=== PATIENT | female | born 1965 | race Caucasian/White ===

== ENCOUNTER 2017-12-18 15:32 | Emergency (ER) | payer OTHER, MEDICARE ==
[~2017-12-18] VITALS: Ht 149.9 cm; Wt 43.2 kg
[2017-12-18 16:19] LABS: CLARITY,URINE SLIGHTLY CLOUDY (Clear); COLOR,URINE YELLOW (Yellow); GLUCOSE, URINE NEGATIVE (Neg); KETONES,URINE NEGATIVE (Neg); LEUKOCYTE ESTERASE ,URINE NEGATIVE (Neg); NITRITES, URINE NEGATIVE (Neg); OCCULT BLOOD,URINE MODERATE (Neg); PROTEIN,URINE NEGATIVE (Neg); UROBILINOGEN,URINE 0.2 E.U/dL (0.2-1.0)
[2017-12-18 16:21] LABS: UA COLLECTION TYPE CLN CATCH MIDSTREAM
[2017-12-18 16:28] LABS: BACTERIA,URINE 3+ /HPF (Neg); SQUAMOUS EPITHELIAL CELL,UR MANY /LPF (FEW)
[2017-12-18 16:29] LABS: RBC,URINE 20-50 /HPF (0-2)
[2017-12-18] MEDS ORDERED: NITR100C6 PO (16:39)
[2017-12-18 16:49] VITALS: BP 150/89
== END 2017-12-18 16:52 | disposition home or self-care (01) ==
LOC: ER 15:32
DX: J02.8 Acute pharyngitis due to other specified organisms (principal); N39.0 Urinary tract infection, site not specified; I10 Essential (primary) hypertension; Z98.890 Other specified postprocedural states; Z90.89 Acquired absence of other organs; Z88.8 Allergy status to other drugs, medicaments and biological substances; Z88.5 Allergy status to narcotic agent; Z79.899 Other long term (current) drug therapy
CPT/HCPCS: 81001; 87081; 87880; 99284

== ENCOUNTER 2017-12-25 18:51 | Emergency (ER) | payer OTHER, MEDICARE ==
[~2017-12-25] VITALS: Ht 149.9 cm; Wt 91.5 kg
[~2017-12-25 18:51] MED LIST: NITR100C6 PO
[2017-12-25 19:25] LABS: BASOPHILS # (AUTO) 0.1 X10'3 (0-0.2); BASOPHILS % (AUTO) 0.7 % (0-1); EOSINOPHILS # (AUTO) 0.3 X10'3 (0-0.9); EOSINOPHILS % (AUTO) 2.7 % (0-6); HEMATOCRIT 42.6 % (35.0-45.0); HEMOGLOBIN 14.6 g/dl (12.0-16.0); LYMPHOCYTES # (AUTO) 3.3 X10'3 (1.1-4.8); LYMPHOCYTES % (AUTO) 29.1 % (21-51); MEAN CORPUSCULAR HEMOGLOBIN 29.8 PG (27.0-31.0); MEAN CORPUSCULAR HGB CONC 34.2 % (33.0-36.5); MEAN CORPUSCULAR VOLUME 87.2 FL (78-98); MEAN PLATELET VOLUME 8.1 FL (7.4-10.4); MONOCYTES # (AUTO) 0.7 X10'3 (0-0.9); MONOCYTES % (AUTO) 5.9 % (2-12); NEUTROPHILS % (AUTO) 61.6 % (42-75); PLATELET COUNT 268 X10'3 (140-440); RED BLOOD COUNT 4.88 X10'6 (4.20-5.60); RED CELL DISTRIBUTION WIDTH 14.3 % (11.5-14.5); WHITE BLOOD COUNT 11.3 X10'3 (4.5-11.0)
[2017-12-25 19:30] LABS: URINE HCG NEGATIVE (NEG)
[2017-12-25 19:34] LABS: INR 0.9 INR; PROTHROMBIN TIME 9.5 SECONDS (9.0-12.0)
[2017-12-25 19:34] LABS: CLARITY,URINE CLEAR (Clear); COLOR,URINE YELLOW (Yellow); GLUCOSE, URINE NEGATIVE (Neg); KETONES,URINE NEGATIVE (Neg); LEUKOCYTE ESTERASE ,URINE NEGATIVE (Neg); NITRITES, URINE NEGATIVE (Neg); OCCULT BLOOD,URINE MODERATE (Neg); PROTEIN,URINE NEGATIVE (Neg); UROBILINOGEN,URINE 0.2 E.U/dL (0.2-1.0)
[2017-12-25 19:39] LABS: UA COLLECTION TYPE CLN CATCH MIDSTREAM
[2017-12-25 19:40] LABS: ALANINE AMINOTRANSFERASE 34 U/L (12-78); ALBUMIN 3.7 G/DL (3.4-5.0); ALKALINE PHOSPHATASE 80 IU/L (46-116); ANION GAP 6 (8-16); ASPARTATE AMINO TRANSFERASE 18 U/L (10-37); BILIRUBIN,TOTAL 0.3 MG/DL (0.1-1.0); BLOOD UREA NITROGEN 16 MG/DL (7-18); CALCIUM 8.9 MG/DL (8.5-10.1); CHLORIDE 100 MMOL/L (99-107); CREATININE 0.94 MG/DL (0.40-0.90); GLUCOSE 106 MG/DL (70-104); POTASSIUM 3.2 MMOL/L (3.5-5.1); SODIUM 136 MMOL/L (135-145); TOTAL CARBON DIOXIDE 30.4 MMOL/L (24-32); TOTAL PROTEIN 7.3 G/DL (6.4-8.2); eGFR 62 ML/MIN
[2017-12-25 19:51] LABS: BACTERIA,URINE 1+ /HPF (Neg); MUCUS STRANDS FEW /LPF (Neg); SQUAMOUS EPITHELIAL CELL,UR FEW /LPF (FEW); WBC,URINE 0-4 /HPF (0-4)
[2017-12-25] MEDS ORDERED: normal saline 1000ML IV soln IVB ONE (21:05)
[2017-12-25] MEDS ORDERED: morphine 4 MG/ML inj SYRINge IV ONE ×2 (21:05→23:30)
[2017-12-25] MEDS ORDERED: ondansetron/PF 4mg/2ml inj IV ONE ×2 (21:05→23:15)
[2017-12-25] MEDS ORDERED: ketorolac tromethamine 15mg/ml inj. IV ONE (21:05)
[2017-12-25] MEDS ORDERED: iohexol 300mg/ml 100ml inj. ONE (21:15)
[2017-12-25] MEDS ORDERED: MORPHINE 2MG in 2ml NS syringe IV PRN (23:15)
[2017-12-25] MEDS ORDERED: ONDA8TAB9 PO (23:20)
[2017-12-25] MEDS ORDERED: HYDR-3965 PO (23:20)
[2017-12-26 00:24] VITALS: BP 143/93
== END 2017-12-26 00:41 | disposition home or self-care (01) ==
LOC: ER 18:51
DX: R10.31 Right lower quadrant pain (principal); M54.5 Low back pain; I10 Essential (primary) hypertension; Z90.89 Acquired absence of other organs; Z98.890 Other specified postprocedural states; Z88.1 Allergy status to other antibiotic agents; Z88.5 Allergy status to narcotic agent; Z88.8 Allergy status to other drugs, medicaments and biological substances; Z79.899 Other long term (current) drug therapy
CPT/HCPCS: 36415; 74177; 80053; 81001; 81025; 85025; 85610; 96374; 96375; 96376; 99285; J1885; J2270; J2274; J2405; J7030; Q9967

== ENCOUNTER 2017-12-29 10:42 | Emergency (ER) | payer OTHER, MEDICARE ==
[~2017-12-29] VITALS: Ht 149.9 cm; Wt 89.0 kg
[~2017-12-29 10:42] MED LIST changes: +HYDR-3965 PO; +ONDA8TAB9 PO
[2017-12-29 11:13] LABS: BASOPHILS % (AUTO) 0.2 % (0-1); EOSINOPHILS # (AUTO) 0.3 X10'3 (0-0.9); EOSINOPHILS % (AUTO) 2.4 % (0-6); HEMATOCRIT 41.6 % (35.0-45.0); HEMOGLOBIN 14.3 g/dl (12.0-16.0); LYMPHOCYTES # (AUTO) 0.5 X10'3 (1.1-4.8); LYMPHOCYTES % (AUTO) 3.3 % (21-51); MEAN CORPUSCULAR HEMOGLOBIN 29.7 PG (27.0-31.0); MEAN CORPUSCULAR HGB CONC 34.3 % (33.0-36.5); MEAN CORPUSCULAR VOLUME 86.7 FL (78-98); MEAN PLATELET VOLUME 7.8 FL (7.4-10.4); MONOCYTES # (AUTO) 0.6 X10'3 (0-0.9); MONOCYTES % (AUTO) 4.3 % (2-12); NEUTROPHILS # (AUTO) 12.9 X10'3 (1.8-7.7); NEUTROPHILS % (AUTO) 89.8 % (42-75); PLATELET COUNT 233 X10'3 (140-440); RED CELL DISTRIBUTION WIDTH 14.6 % (11.5-14.5); WHITE BLOOD COUNT 14.3 X10'3 (4.5-11.0)
[2017-12-29] MEDS ORDERED: ketorolac trometh. 30mg/ml inj. IV ONE (11:20)
[2017-12-29] MEDS ORDERED: ondansetron/PF 4mg/2ml inj IV ONE (11:20)
[2017-12-29] MEDS ORDERED: normal saline 1000ML IV soln IVB ONE (11:20)
[2017-12-29 11:26] LABS: INR 0.9 INR; PARTIAL THROMBOPLASTIN TIME 31 SECONDS (22-32); PROTHROMBIN TIME 9.8 SECONDS (9.0-12.0)
[2017-12-29 11:34] LABS: ALANINE AMINOTRANSFERASE 44 U/L (12-78); ALBUMIN 3.3 G/DL (3.4-5.0); ALBUMIN/GLOBULIN RATIO 0.8 (1.1-1.5); ALKALINE PHOSPHATASE 79 IU/L (46-116); ANION GAP 10 (8-16); ASPARTATE AMINO TRANSFERASE 25 U/L (10-37); BILIRUBIN,TOTAL 0.5 MG/DL (0.1-1.0); BLOOD UREA NITROGEN 13 MG/DL (7-18); BUN/CREATININE RATIO 12.4 (6.6-38.0); CALCIUM 8.9 MG/DL (8.5-10.1); CHLORIDE 98 MMOL/L (99-107); CREATININE 1.05 MG/DL (0.40-0.90); GLUCOSE 140 MG/DL (70-104); LIPASE < 50 U/L (73-393); POTASSIUM 3.2 MMOL/L (3.5-5.1); SODIUM 134 MMOL/L (135-145); TOTAL CARBON DIOXIDE 26.4 MMOL/L (24-32); TOTAL PROTEIN 7.6 G/DL (6.4-8.2); eGFR 55 ML/MIN
[2017-12-29 11:45] LABS: MONOTEST NEGATIVE (Neg)
[2017-12-29 12:03] LABS: CLARITY,URINE CLOUDY (Clear); COLOR,URINE YELLOW (Yellow); GLUCOSE, URINE NEGATIVE (Neg); KETONES,URINE TRACE mg/dl (Neg); LEUKOCYTE ESTERASE ,URINE NEGATIVE (Neg); NITRITES, URINE NEGATIVE (Neg); OCCULT BLOOD,URINE LARGE (Neg); PROTEIN,URINE 100 mg/dl (Neg); UA COLLECTION TYPE VOIDED
[2017-12-29 12:12] LABS: BACTERIA,URINE 1+ /HPF (Neg); RBC,URINE 20-50 /HPF (0-2); SQUAMOUS EPITHELIAL CELL,UR MANY /LPF (FEW); WBC,URINE 0-4 /HPF (0-4)
[2017-12-29 12:13] LABS: AMORPHOUS URATES 1+; MUCUS STRANDS FEW /LPF (Neg)
[2017-12-29] MEDS ORDERED: HYDROcodone/acetaminophen 10/325mg tab PO ONE (14:15)
[2017-12-29 14:50] VITALS: BP 112/64
[2017-12-29] MEDS ORDERED: POLY17PO10 PO (15:30)
== END 2017-12-29 15:43 | disposition home or self-care (01) ==
LOC: ER 10:42
DX: B08.4 Enteroviral vesicular stomatitis with exanthem (principal); K59.00 Constipation, unspecified; I10 Essential (primary) hypertension; Z98.890 Other specified postprocedural states; Z90.89 Acquired absence of other organs; Z88.5 Allergy status to narcotic agent; Z88.8 Allergy status to other drugs, medicaments and biological substances; Z79.899 Other long term (current) drug therapy
CPT/HCPCS: 36415; 62270; 71045; 74018; 80053; 81001; 83605; 83690; 84145; 85025; 85610; 85730; 86308; 87040; 96361; 96374; 96375; 99285; A6258; J1885; J2405; J7030

== ENCOUNTER 2017-12-31 11:09 | Outpatient (CLI) | payer OTHER, MEDICARE ==
[~2017-12-31 11:09] MED LIST changes: +POLY17PO10 PO
[2017-12-31 11:38] LABS: BASOPHILS % (AUTO) 0.2 % (0-1); EOSINOPHILS # (AUTO) 0.7 X10'3 (0-0.9); EOSINOPHILS % (AUTO) 10.7 % (0-6); HEMATOCRIT 39.9 % (35.0-45.0); HEMOGLOBIN 13.6 g/dl (12.0-16.0); LYMPHOCYTES # (AUTO) 1.7 X10'3 (1.1-4.8); LYMPHOCYTES % (AUTO) 27.9 % (21-51); MEAN CORPUSCULAR HEMOGLOBIN 29.6 PG (27.0-31.0); MEAN CORPUSCULAR HGB CONC 34.1 % (33.0-36.5); MEAN CORPUSCULAR VOLUME 86.9 FL (78-98); MEAN PLATELET VOLUME 7.4 FL (7.4-10.4); MONOCYTES # (AUTO) 0.5 X10'3 (0-0.9); MONOCYTES % (AUTO) 8.9 % (2-12); NEUTROPHILS # (AUTO) 3.2 X10'3 (1.8-7.7); NEUTROPHILS % (AUTO) 52.3 % (42-75); PLATELET COUNT 266 X10'3 (140-440); RED CELL DISTRIBUTION WIDTH 14.5 % (11.5-14.5); WHITE BLOOD COUNT 6.1 X10'3 (4.5-11.0)
[2017-12-31 11:53] LABS: ALANINE AMINOTRANSFERASE 41 U/L (12-78); ALBUMIN 3.2 G/DL (3.4-5.0); ALBUMIN/GLOBULIN RATIO 0.8 (1.1-1.5); ALKALINE PHOSPHATASE 76 IU/L (46-116); ANION GAP 7 (8-16); ASPARTATE AMINO TRANSFERASE 17 U/L (10-37); BILIRUBIN,TOTAL 0.4 MG/DL (0.1-1.0); BLOOD UREA NITROGEN 13 MG/DL (7-18); BUN/CREATININE RATIO 12.5 (6.6-38.0); CALCIUM 9.3 MG/DL (8.5-10.1); CHLORIDE 103 MMOL/L (99-107); CREATININE 1.04 MG/DL (0.40-0.90); GLUCOSE 103 MG/DL (70-104); LIPASE < 50 U/L (73-393); POTASSIUM 3.1 MMOL/L (3.5-5.1); SODIUM 140 MMOL/L (135-145); TOTAL CARBON DIOXIDE 30.2 MMOL/L (24-32); TOTAL PROTEIN 7.2 G/DL (6.4-8.2); eGFR 55 ML/MIN
== END 2017-12-31 23:59 | disposition home or self-care (01) ==
LOC: LAB 11:09
PROVIDERS: ATTEND Family Medicine
DX: R11.10 Vomiting, unspecified (principal); Z88.1 Allergy status to other antibiotic agents; Z88.5 Allergy status to narcotic agent
CPT/HCPCS: 36415; 80053; 83690; 85025

== ENCOUNTER 2018-05-30 11:34 | Emergency (ER) | payer OTHER, MEDICARE ==
[~2018-05-30] VITALS: Ht 149.9 cm; Wt 81.8 kg
[~2018-05-30 11:34] MED LIST changes: -HYDR-3965 PO; +KETO10TA2 PO; +ORPH100T2 PO; -POLY17PO10 PO
[2018-05-30] MEDS ORDERED: ondansetron/PF 4mg/2ml inj IV ONE (12:45)
[2018-05-30] MEDS ORDERED: normal saline 1000ML IV soln IVB ONE (12:45)
[2018-05-30 12:51] LABS: BASOPHILS # (AUTO) 0.1 X10'3 (0-0.2); BASOPHILS % (AUTO) 0.6 % (0-1); EOSINOPHILS # (AUTO) 0.1 X10'3 (0-0.9); EOSINOPHILS % (AUTO) 1.2 % (0-6); HEMATOCRIT 42.8 % (35.0-45.0); HEMOGLOBIN 14.4 g/dl (12.0-16.0); LYMPHOCYTES # (AUTO) 2.5 X10'3 (1.1-4.8); LYMPHOCYTES % (AUTO) 27.1 % (21-51); MEAN CORPUSCULAR HEMOGLOBIN 29.8 PG (27.0-31.0); MEAN CORPUSCULAR HGB CONC 33.7 % (33.0-36.5); MEAN CORPUSCULAR VOLUME 88.2 FL (78-98); MEAN PLATELET VOLUME 8.4 FL (7.4-10.4); MONOCYTES # (AUTO) 0.5 X10'3 (0-0.9); NEUTROPHILS # (AUTO) 6.1 X10'3 (1.8-7.7); NEUTROPHILS % (AUTO) 66.1 % (42-75); PLATELET COUNT 289 X10'3 (140-440); RED BLOOD COUNT 4.85 X10'6 (4.20-5.60); RED CELL DISTRIBUTION WIDTH 12.8 % (11.5-14.5); WHITE BLOOD COUNT 9.3 X10'3 (4.5-11.0)
[2018-05-30 13:00] LABS: CLARITY,URINE CLEAR (Clear); COLOR,URINE STRAW (Yellow); GLUCOSE, URINE NEGATIVE (Neg); KETONES,URINE NEGATIVE (Neg); LEUKOCYTE ESTERASE ,URINE NEGATIVE (Neg); NITRITES, URINE NEGATIVE (Neg); OCCULT BLOOD,URINE SMALL (Neg); PROTEIN,URINE NEGATIVE (Neg); UROBILINOGEN,URINE 0.2 E.U/dL (0.2-1.0)
[2018-05-30 13:01] LABS: UA COLLECTION TYPE CLN CATCH MIDSTREAM
[2018-05-30 13:15] LABS: RBC,URINE 0-2 /HPF (0-2); WBC,URINE NONE SEEN /HPF (0-4)
[2018-05-30 13:16] LABS: BACTERIA,URINE RARE /HPF (Neg); SQUAMOUS EPITHELIAL CELL,UR FEW /LPF (FEW)
[2018-05-30 13:21] LABS: ALANINE AMINOTRANSFERASE 35 U/L (12-78); ALBUMIN 3.8 G/DL (3.4-5.0); ALBUMIN/GLOBULIN RATIO 1.2 (1.1-1.5); ALKALINE PHOSPHATASE 63 IU/L (46-116); ANION GAP 14 (8-16); ASPARTATE AMINO TRANSFERASE 17 U/L (10-37); BILIRUBIN,TOTAL 0.6 MG/DL (0.1-1.0); BLOOD UREA NITROGEN 12 MG/DL (7-18); BUN/CREATININE RATIO 13.2 (6.6-38.0); CALCIUM 8.8 MG/DL (8.5-10.1); CHLORIDE 100 MMOL/L (99-107); CREATININE 0.91 MG/DL (0.40-0.90); GLUCOSE 93 MG/DL (70-104); SODIUM 138 MMOL/L (135-145); TOTAL CARBON DIOXIDE 24.2 MMOL/L (24-32); TOTAL PROTEIN 7.1 G/DL (6.4-8.2); eGFR 64 ML/MIN
[2018-05-30] MEDS ORDERED: METR-211 PO (13:27)
[2018-05-30] MEDS ORDERED: potassium Cl 20 mEq SR tablet PO ONE (13:30)
[2018-05-30] MEDS ORDERED: POTA10CA44 PO (13:31)
[2018-05-30 14:09] VITALS: BP 121/73
== END 2018-05-30 14:37 | disposition home or self-care (01) ==
LOC: ER 11:34
DX: N76.0 Acute vaginitis (principal); R19.7 Diarrhea, unspecified; I10 Essential (primary) hypertension; Z90.710 Acquired absence of both cervix and uterus; Z90.89 Acquired absence of other organs; Z98.890 Other specified postprocedural states; Z88.1 Allergy status to other antibiotic agents; Z91.018 Allergy to other foods; Z88.6 Allergy status to analgesic agent; Z88.8 Allergy status to other drugs, medicaments and biological substances; Z79.899 Other long term (current) drug therapy
CPT/HCPCS: 36415; 80053; 81001; 85025; 96361; 96374; 99283; J2405; J7030

== ENCOUNTER 2018-07-11 12:48 | Outpatient (CLI) | payer OTHER, MEDICARE | END 2018-07-11 23:59 | disposition home or self-care (01) | LOC: RAD 12:48 | PROVIDERS: ATTEND Physical Medicine & Rehabilitation | DX: M51.16 Intervertebral disc disorders with radiculopathy, lumbar region (principal); I10 Essential (primary) hypertension; J45.909 Unspecified asthma, uncomplicated; Z98.890 Other specified postprocedural states; Z87.891 Personal history of nicotine dependence; Z88.1 Allergy status to other antibiotic agents; Z88.5 Allergy status to narcotic agent; Z88.8 Allergy status to other drugs, medicaments and biological substances | CPT/HCPCS: 72148 ==

== ENCOUNTER 2018-08-05 17:10 | Outpatient (CLI) | payer OTHER, MEDICARE | END 2018-08-05 23:59 | disposition home or self-care (01) | LOC: RAD 17:10 | PROVIDERS: ATTEND Anesthesiology Pain Medicine | DX: M50.13 Cervical disc disorder with radiculopathy, cervicothoracic region (principal); M62.838 Other muscle spasm; I10 Essential (primary) hypertension; J45.909 Unspecified asthma, uncomplicated; Z87.891 Personal history of nicotine dependence; Z88.1 Allergy status to other antibiotic agents; Z88.8 Allergy status to other drugs, medicaments and biological substances | CPT/HCPCS: 72141 ==

== ENCOUNTER 2018-08-06 11:33 | Outpatient (CLI) | payer OTHER, MEDICARE | END 2018-08-06 23:59 | disposition home or self-care (01) | LOC: CARD DIAG 11:33 | PROVIDERS: ATTEND Otolaryngology | DX: Z01.810 Encounter for preprocedural cardiovascular examination (principal); H69.83 Other specified disorders of Eustachian tube, bilateral; I10 Essential (primary) hypertension; J45.909 Unspecified asthma, uncomplicated; Z90.710 Acquired absence of both cervix and uterus; Z87.891 Personal history of nicotine dependence | CPT/HCPCS: 93005 ==

== ENCOUNTER 2018-12-08 12:17 | Day surgery (SDC) | payer OTHER, MEDICARE ==
[~2018-12-08] VITALS: Ht 149.9 cm; Wt 75.0 kg
[2018-12-08 12:35] VITALS: BP 123/73
[2018-12-08] MEDS ORDERED: IBUP-1986 PO (13:00)
[2018-12-08] MEDS ORDERED: CYCL10TA26 PO (13:01)
[2018-12-08] MEDS ORDERED: PROM25TA14 PO (13:01)
[2018-12-08] MEDS ORDERED: MONT10TA24 PO (13:04)
[2018-12-08] MEDS ORDERED: HYDR-3972 PO (13:06)
[2018-12-08] MEDS ORDERED: HYDR12.5 PO (13:07)
[2018-12-08] MEDS ORDERED: DICL50TA8 PO (13:08)
[2018-12-08] MEDS ORDERED: FLUT16SP2 BOTHNARES (13:10)
[2018-12-08] MEDS ORDERED: ESTR8.1S (13:13)
[2018-12-08] MEDS ORDERED: MULT-955 PO (13:14)
[2018-12-08] MEDS ORDERED: fentaNYL/PF 50MCG/1 ML 2ML syringe ONE (13:20)
[2018-12-08] MEDS ORDERED: MIDAZolam 5mg/5ml vial ONE (13:20)
[2018-12-08 15:26] VITALS: BP 117/50
[2018-12-08 15:36] VITALS: BP 102/67
[2018-12-08 15:46] VITALS: BP 114/64
[2018-12-08 15:56] VITALS: BP 106/65
== END 2018-12-08 16:10 | disposition home or self-care (01) ==
LOC: GI LAB 12:17
PROVIDERS: ATTEND Internal Medicine Gastroenterology
DX: Z12.11 Encounter for screening for malignant neoplasm of colon (principal); K57.30 Diverticulosis of large intestine without perforation or abscess without bleeding; K64.8 Other hemorrhoids; Z83.71 Family history of colonic polyps; Z86.010 Personal history of colon polyps
CPT/HCPCS: 45378; 99152; 99153; J2250; J3010; J7030; A4620; J7040

== ENCOUNTER 2019-01-22 15:06 | Emergency (ER) | payer MEDICARE, OTHER ==
[~2019-01-22] VITALS: Ht 149.9 cm; Wt 73.6 kg
[~2019-01-22 15:06] MED LIST changes: +CYCL10TA26 PO; +DICL50TA8 PO; +ESTR8.1S; +FLUT16SP2 BOTHNARES; +HYDR-3972 PO; +HYDR12.5 PO; +IBUP-1986 PO; -KETO10TA2 PO; +MONT10TA24 PO; +MULT-955 PO; -NITR100C6 PO; -ONDA8TAB9 PO; -ORPH100T2 PO; +PROM25TA14 PO
[2019-01-22 15:07] VITALS: BP 167/93
[2019-01-22] MEDS ORDERED: amoxicillin 250mg capsule PO ONE (15:35)
[2019-01-22] MEDS ORDERED: AMOX500C2 PO (15:36)
== END 2019-01-22 15:43 | disposition home or self-care (01) ==
LOC: ER 15:06
DX: H92.02 Otalgia, left ear (principal); I10 Essential (primary) hypertension; Z96.22 Myringotomy tube(s) status; Z90.710 Acquired absence of both cervix and uterus; Z90.89 Acquired absence of other organs; Z98.890 Other specified postprocedural states; Z88.8 Allergy status to other drugs, medicaments and biological substances; Z88.1 Allergy status to other antibiotic agents; Z88.5 Allergy status to narcotic agent; Z91.018 Allergy to other foods; Z79.899 Other long term (current) drug therapy
CPT/HCPCS: 99283

== ENCOUNTER 2019-05-15 10:05 | Inpatient (IN) | payer OTHER ==
[2019-05-13 17:27] LABS: BASOPHILS % (AUTO) 0.4 % (0-1); EOSINOPHILS # (AUTO) 0.2 X10'3 (0-0.9); EOSINOPHILS % (AUTO) 2.1 % (0-6); LYMPHOCYTES # (AUTO) 3.2 X10'3 (1.1-4.8); LYMPHOCYTES % (AUTO) 40.2 % (21-51); MEAN CORPUSCULAR HEMOGLOBIN 30.2 PG (27.0-31.0); MEAN CORPUSCULAR VOLUME 88.9 FL (78-98); MEAN PLATELET VOLUME 8.4 FL (7.4-10.4); MONOCYTES # (AUTO) 0.5 X10'3 (0-0.9); MONOCYTES % (AUTO) 6.7 % (2-12); NEUTROPHILS # (AUTO) 4.1 X10'3 (1.8-7.7); NEUTROPHILS % (AUTO) 50.6 % (42-75); PRE OP HEMOGLOBIN 14.3 g/dL (12.0-16.0); PRE OP PLATELET COUNT 271 X10'3 (140-440); RED BLOOD COUNT 4.72 X10'6 (4.20-5.60); RED CELL DISTRIBUTION WIDTH 13.4 % (11.5-14.5)
[2019-05-13 17:29] LABS: CLARITY,URINE SLIGHTLY CLOUDY (Clear); COLOR,URINE YELLOW (Yellow); GLUCOSE, URINE NEGATIVE (Neg); KETONES,URINE NEGATIVE (Neg); LEUKOCYTE ESTERASE ,URINE NEGATIVE (Neg); NITRITES, URINE NEGATIVE (Neg); OCCULT BLOOD,URINE TRACE-INTACT (Neg); PH,URINE 5.5 (4.8-8.0); PROTEIN,URINE NEGATIVE (Neg); UROBILINOGEN,URINE 0.2 E.U/dL (0.2-1.0)
[2019-05-13 17:32] LABS: UA COLLECTION TYPE CLN CATCH MIDSTREAM
[2019-05-13 17:35] LABS: MUCUS STRANDS MANY /LPF (Neg); SQUAMOUS EPITHELIAL CELL,UR FEW /LPF (FEW)
[2019-05-13 17:36] LABS: BACTERIA,URINE FEW /HPF (Neg)
[2019-05-13 17:37] LABS: WBC,URINE 0-4 /HPF (0-4)
[2019-05-13 17:38] LABS: PRE OP INR 0.9 INR; PRE OP PROTIME 9.7 SECONDS (9.0-12.0)
[2019-05-13 17:39] LABS: ALBUMIN 3.9 G/DL (3.4-5.0); ALBUMIN/GLOBULIN RATIO 1.3 (1.1-1.5); ALKALINE PHOSPHATASE 69 IU/L (46-116); BLOOD UREA NITROGEN 21 MG/DL (7-18); BUN/CREATININE RATIO 26.3 (6.6-38.0); CALCIUM 8.9 MG/DL (8.5-10.1); CHLORIDE 106 MMOL/L (99-107); PRE OP ALT 27 U/L (30-65); PRE OP ANION GAP 7 (8-16); PRE OP AST 16 U/L (10-37); PRE OP BILIRUB, TOTAL 0.4 MG/DL (0.0-1.0); PRE OP GLUCOSE 80 MG/DL (70-104); PRE OP POTASSIUM 3.5 MMOL/L (3.4-5.1); PRE OP SODIUM 144 MMOL/L (135-145); TOTAL CARBON DIOXIDE 31.5 MMOL/L (24-32); eGFR 74 ML/MIN
[~2019-05-15] VITALS: Ht 149.9 cm; Wt 82.0 kg
[2019-05-15] VITALS (17 sets, daily range): BP systolic 100–158; BP diastolic 68–97
[~2019-05-15 10:05] MED LIST changes: -DICL50TA8 PO; +DULO30CA52 PO; +GABA-530 PO; -HYDR-3972 PO; -IBUP-1986 PO; +MELA1TAB16 PO; -MONT10TA24 PO; -PROM25TA14 PO; +QUET25TA PO; +cefazolin/dext.iso 2gm/100ml 100 ML IV ONE; +famotidine 20mg tablet PO ONE; +ringers solution, lacted 1,000 ML IV SCH
[2019-05-15] MEDS ORDERED: gentamicin 40 MG/1 ML inj ONE (11:33)
[2019-05-15] MEDS ORDERED: bacitracin 15gm ointment TP ONE (11:34)
[2019-05-15] MEDS ORDERED: BUPIVAcaine/PF 2.5 mg/ml (0.25%) 30ml vial ONE (11:34)
[2019-05-15] MEDS ORDERED: scopolamine 1.5mg patch.TD72 TD ONE (12:02)
[2019-05-15] MEDS ORDERED: midazolam 2 mg/2 ml injection ONE (12:12)
[2019-05-15] MEDS ORDERED: sevoflurane 250ml liquid IH ONE (12:12)
[2019-05-15] MEDS ORDERED: fentaNYL /PF 50mcg/ml 5ml ampule ONE (12:12)
[2019-05-15] MEDS ORDERED: propofol 1000mg/100ml bottle 100 ML IV ONE (12:23)
[2019-05-15] MEDS ORDERED: ringers solution, lacted 1,000 ML IV SCH (13:46)
[2019-05-15] MEDS ORDERED: HYDROmorphone inj. 0.5 MG/0.5 ML DISP.SYRIN IV PRN ×2 (13:50)
[2019-05-15] MEDS ORDERED: meperidine/PF 25mg/ml syringe IV PRN ×2 (13:50)
[2019-05-15] MEDS ORDERED: ondansetron/PF 4mg/2ml inj IV PRN (13:50)
[2019-05-15] MEDS ORDERED: ondansetron/PF 4mg/2ml inj ONE (15:20)
[2019-05-15] MEDS ORDERED: dexamethasone sod phosphate 4mg/ml inj. ONE (15:20)
[2019-05-15] MEDS ORDERED: glycopyrrolate 0.2mg/ml inj ONE (15:20)
[2019-05-15] MEDS ORDERED: neostigmine methylsulfate 1 MG/ML 10ml vial ONE (15:20)
[2019-05-15] MEDS ORDERED: LIDOcaine 2% (20mg/ml) 5ml vial ONE (15:20)
[2019-05-15] MEDS ORDERED: rocuronium 10mg/ml inj IV ONE (15:20)
[2019-05-15] MEDS ORDERED: propofol inj 20 ML IV ONE (15:20)
[2019-05-15] MEDS ORDERED: meperidine/PF 50mg/ml syringe ONE (15:21)
--- NOTE | 2019-05-15 15:39 | NUR ---
Received from OR via ORTHO BED WITH KSJUDIE , accompanied by Anesthesiologist MARY and report given by Anesthesiolgist. PATIENT WITH ASPEN BRACE ON, ANTERIOR NECK DRESSING IS CDI. PUSH PULLS ON UE'S EQUAL, WRIST EXTENSION IS PRESENT AND WITHOUT DIFFICULTY WELL. SCDS DONNED IN RR. MEDICATED FOR PAIN UPON ARRIVAL, TLS DRAIN PRSENT. Addendum: 05/15/19 at 1607 by Trell Melendrez RN, RN Amended: Links added.
[2019-05-15] MEDS ORDERED: ceFAZolin inj. 2,000 MG in dextrose 5%-water 50ml 50 ML IV SCH (16:00)
--- NOTE | 2019-05-15 16:39 | NUR ---
ALL CRITERIA FOR TRANSFER TO THE FLOOR HAS BEEN ACHIEVED. VSS. BED LOW, CALL LIGHT AND VS. SET IN PLACE. RN PRESENT TO ACCEPT CARE. PATIENT RESTING COMFORTABLY IN BED. BELONGINGS SENT WITH PATIENT. DRESSINGS CDI. PATIENT VSS. STILL HAVING PAIN DESPITE PAIN MED ADMINISTRATION. ENCOURAGE HANK BARNES TO START WITH PO FLUIDS AND USE A NORCO FOR PAIN CONTROL ONCE ABLE. PATIENT STATES THAT NORCO WORKS WELL FOR HER PAIN. STILL NEUROLOGICALLY INTACT AT THIS TIME. TLS INTACT, INSTRUCTED RN ON HOW TO CHANGE VIALS. FAMILY AT BEDSIDE WITH PATIENT. ALL BELONGINGS SENT TO PATIENT. Addendum: 05/15/19 at 1701 by Trell Doshi - HANK RN Amended: Links added.
--- NOTE | 2019-05-15 17:19 | NUR ---
FC not present on arrival Addendum: 05/15/19 at 1719 by Cyndie Mead RN Amended: Links added.
--- NOTE | 2019-05-15 18:33 | NUR ---
Patient in room ORTHO 4015. I have received report from Perla MCKINNEY and had the opportunity to ask questions and assume patient care.
[2019-05-15] MEDS: ondansetron/PF 4mg/2ml inj IV PRN (18:43)
[2019-05-15] MEDS: HYDROmorphone inj. 0.5 MG/0.5 ML DISP.SYRIN IV PRN (18:44)
[2019-05-15] MEDS: potassium CL 20mEq in D5-1/2NS 1,000 ML IV SCH (19:35)
[2019-05-15] MEDS ORDERED: famotidine 20mg tablet PO SCH (20:00)
[2019-05-15] MEDS: QUEtiapine 25mg tablet PO SCH (20:45)
[2019-05-15] MEDS: gabapentin 100mg capsule PO SCH (20:45)
[2019-05-15] MEDS: cyclobenzaprine 10mg tablet PO SCH (20:45)
[2019-05-15] MEDS ORDERED: HYDROcodone/acetaminophen 10/325mg tab PO PRN ×2 (21:39)
[2019-05-15] MEDS: cefazolin/dext.iso 2gm/100ml 100 ML IV SCH (23:50)
[2019-05-16] VITALS (7 sets, daily range): BP systolic 82–117; BP diastolic 42–65
[2019-05-16] MEDS: ondansetron/PF 4mg/2ml inj IV PRN ×4 (03:38→23:28)
--- NOTE | 2019-05-16 03:43 | NUR ---
New tube placed for TLS drain due to the drainage in the tubing was not moving into the test tube. Tube content measured.
[2019-05-16] MEDS: potassium CL 20mEq in D5-1/2NS 1,000 ML IV SCH ×2 (04:15→16:45)
[2019-05-16] MEDS ORDERED: magnesium hydroxide 30ml (MOM) UD suspension PO PRN (05:00)
--- NOTE | 2019-05-16 06:29 | NUR ---
Problems reprioritized. Patient report given, questions answered & plan of care reviewed with Perla MCKINNEY.
[2019-05-16 07:02] LABS: BASOPHILS % (AUTO) 0.3 % (0-1); EOSINOPHILS % (AUTO) 0 % (0-6); HEMATOCRIT 38.5 % (35.0-45.0); HEMOGLOBIN 12.9 g/dl (12.0-16.0); LYMPHOCYTES % (AUTO) 16.5 % (21-51); MEAN CORPUSCULAR HEMOGLOBIN 30.2 PG (27.0-31.0); MEAN CORPUSCULAR HGB CONC 33.5 g/dL (33.0-36.5); MEAN PLATELET VOLUME 8.9 FL (7.4-10.4); MONOCYTES # (AUTO) 0.9 X10'3 (0-0.9); MONOCYTES % (AUTO) 7.6 % (2-12); NEUTROPHILS % (AUTO) 75.6 % (42-75); PLATELET COUNT 246 X10'3 (140-440); RED BLOOD COUNT 4.28 X10'6 (4.20-5.60); RED CELL DISTRIBUTION WIDTH 13.4 % (11.5-14.5); WHITE BLOOD COUNT 11.9 X10'3 (4.5-11.0)
[2019-05-16 07:16] LABS: ANION GAP 8 (8-16); CHLORIDE 106 MMOL/L (99-107); POTASSIUM 3.8 MMOL/L (3.5-5.1); SODIUM 141 MMOL/L (135-145); TOTAL CARBON DIOXIDE 27.4 MMOL/L (24-32)
[2019-05-16] MEDS: HYDROchlorothiazide 12.5mg capsule PO SCH (08:00)
[2019-05-16] MEDS: duloxetine 30mg CAPSULE.DR PO SCH (08:44)
[2019-05-16] MEDS: famotidine 10mg tablet PO SCH ×2 (08:44→21:02)
[2019-05-16] MEDS: multivitamins, therapeutics tablet PO SCH (08:44)
[2019-05-16] MEDS: docusate sod 100mg capsule PO SCH (08:44)
[2019-05-16] MEDS: cefazolin/dext.iso 2gm/100ml 100 ML IV SCH (08:45)
[2019-05-16] MEDS: fluticasone nasal spray 16GM bottle NS SCH (08:45)
[2019-05-16] MEDS: cyclobenzaprine 10mg tablet PO SCH (08:45)
[2019-05-16] MEDS: HYDROmorphone inj. 0.5 MG/0.5 ML DISP.SYRIN IV PRN ×2 (08:46→21:14)
[2019-05-16] MEDS ORDERED: HYDROcodone/acetaminophen 5mg/325mg tablet PO PRN ×2 (09:10)
[2019-05-16] MEDS ORDERED: diphenhydrAMINE 50 mg/ml inj IV PRN (09:10)
[2019-05-16] MEDS ORDERED: DOCU100C40 PO (09:20)
[2019-05-16] MEDS ORDERED: HYDR-4353 PO (09:20)
[2019-05-16] MEDS ORDERED: WALKERFR (09:20)
[2019-05-16] MEDS ORDERED: WALK1EAC55 MC (09:47)
[2019-05-16] MEDS: HYDROcodone/acetaminophen 10/325mg tab PO PRN (17:27)
--- NOTE | 2019-05-16 18:39 | NUR ---
Patient in room ORTHO 4015. I have received report from Perla MCKINNEY and had the opportunity to ask questions and assume patient care.
[2019-05-16] MEDS: gabapentin 100mg capsule PO SCH (21:02)
[2019-05-16] MEDS: QUEtiapine 25mg tablet PO SCH (21:02)
--- NOTE | 2019-05-16 22:10 | NUR ---
Walked 300ft with FWW. Had to sit twice due to being tired.
--- NOTE | 2019-05-16 23:46 | NUR ---
Patient requesting pain meds to help with sleep. Patients pain 5/10. Patients BP is lower and patient is falling asleep while speaking with her. Holding off on pain meds at this time and will monitor patients BP.
[2019-05-17 01:15] VITALS: BP 97/46
[2019-05-17] MEDS: HYDROcodone/acetaminophen 10/325mg tab PO PRN ×4 (01:22→14:51)
[2019-05-17] MEDS: potassium CL 20mEq in D5-1/2NS 1,000 ML IV SCH (01:25)
[2019-05-17 05:00] VITALS: BP 106/53
[2019-05-17] MEDS: ondansetron/PF 4mg/2ml inj IV PRN ×2 (05:29→14:44)
--- NOTE | 2019-05-17 06:38 | NUR ---
Problems reprioritized. Patient report given, questions answered & plan of care reviewed with Nasrin MCKINNEY.
--- NOTE | 2019-05-17 06:49 | NUR ---
Patient in room ORTHO 4015B. I have received report from NICKOLAS MCKINNEY and had the opportunity to ask questions and assume patient care.
[2019-05-17] MEDS: HYDROchlorothiazide 12.5mg capsule PO SCH (08:00)
[2019-05-17] MEDS: fluticasone nasal spray 16GM bottle NS SCH (09:23)
[2019-05-17] MEDS: docusate sod 100mg capsule PO SCH (09:24)
[2019-05-17] MEDS: duloxetine 30mg CAPSULE.DR PO SCH (09:25)
[2019-05-17] MEDS: multivitamins, therapeutics tablet PO SCH (09:26)
[2019-05-17] MEDS: famotidine 10mg tablet PO SCH (09:26)
[2019-05-17 10:00] VITALS: BP 104/61
[2019-05-17] MEDS ORDERED: PROM12.512 PO ×2 (13:09)
== END 2019-05-17 15:15 | disposition home or self-care (01) | DRG 473 ==
LOC: PAS IN 10:05 → EDSTATUS 12:30 → ORTHO 4S 16:40
PROVIDERS: ADMIT Orthopaedic Surgery; ATTEND Orthopaedic Surgery
PROC: 0RB30ZZ Excision of Cervical Vertebral Disc, Open Approach (ICD-10-PCS; 2019-05-15)
PROC: 4A11X4G Monitoring of Peripheral Nervous Electrical Activity, Intraoperative, External Approach (ICD-10-PCS; 2019-05-15)
PROC: 0RG1070 Fusion of Cervical Vertebral Joint with Autologous Tissue Substitute, Anterior Approach, Anterior Column, Open Approach (ICD-10-PCS; principal; 2019-05-15 12:12)
DX: M47.9 Spondylosis, unspecified (principal); M48.02 Spinal stenosis, cervical region; M54.12 Radiculopathy, cervical region; M25.78 Osteophyte, vertebrae; M40.50 Lordosis, unspecified, site unspecified
CPT/HCPCS: Z7506; Z7508; 36415; 72040; 72050; 76000; 80051; 80053; 81001; 82948; 85025; 85610; 85730; 87081; 97112; 97116; 97161; 97530; A4215; A4618; A6258; A6402; A7000; C1713; C1729; C1758; G0378; J0690; J1100; J1170; J1200; J1580; J2001; J2175; J2250; J2405; J2704; J2710; J3010; J3480; J3490; J7050; J7060; J7120

== ENCOUNTER 2019-08-14 13:55 | Outpatient (CLI) | payer OTHER ==
[~2019-08-14 13:55] MED LIST changes: -ESTR8.1S; -MELA1TAB16 PO; +PROM12.512 PO; +WALK1EAC55 MC; +WALKERFR; -cefazolin/dext.iso 2gm/100ml 100 ML IV ONE; -famotidine 20mg tablet PO ONE; -ringers solution, lacted 1,000 ML IV SCH
== END 2019-08-14 23:59 | disposition home or self-care (01) ==
LOC: RAD 13:55
PROVIDERS: ATTEND Orthopaedic Surgery
DX: M50.23 Other cervical disc displacement, cervicothoracic region (principal); M54.12 Radiculopathy, cervical region; M48.02 Spinal stenosis, cervical region; M99.61 Osseous and subluxation stenosis of intervertebral foramina of cervical region; M47.812 Spondylosis without myelopathy or radiculopathy, cervical region
CPT/HCPCS: 72141

== ENCOUNTER 2019-08-16 16:59 | Emergency (ER) | payer BC, MEDICARE, OTHER ==
[~2019-08-16] VITALS: Ht 124.5 cm; Wt 77.7 kg
[2019-08-16 17:00] VITALS: BP 129/57
--- NOTE | 2019-08-16 17:49 | NUR ---
pt. waiting in her red jeep car, 4 cars behind the influenza tent.
[2019-08-16 18:16] LABS: BASOPHILS % (AUTO) 0.3 % (0-1); EOSINOPHILS # (AUTO) 0.1 X10'3 (0-0.9); EOSINOPHILS % (AUTO) 1.2 % (0-6); HEMATOCRIT 41.8 % (35.0-45.0); HEMOGLOBIN 14.5 g/dl (12.0-16.0); LYMPHOCYTES # (AUTO) 2.9 X10'3 (1.1-4.8); LYMPHOCYTES % (AUTO) 27.1 % (21-51); MEAN CORPUSCULAR HGB CONC 34.7 g/dL (33.0-36.5); MEAN CORPUSCULAR VOLUME 86.7 FL (78-98); MEAN PLATELET VOLUME 8.1 FL (7.4-10.4); MONOCYTES # (AUTO) 0.8 X10'3 (0-0.9); NEUTROPHILS % (AUTO) 64.4 % (42-75); PLATELET COUNT 302 X10'3 (140-440); RED BLOOD COUNT 4.82 X10'6 (4.20-5.60); WHITE BLOOD COUNT 10.9 X10'3 (4.5-11.0)
[2019-08-16] MEDS ORDERED: ALBU8.5H8 IH (19:23)
== END 2019-08-16 19:30 | disposition home or self-care (01) ==
LOC: ER 16:59
DX: B34.9 Viral infection, unspecified (principal); R05 Cough; R06.02 Shortness of breath; R50.9 Fever, unspecified; I10 Essential (primary) hypertension; Z90.710 Acquired absence of both cervix and uterus; Z98.890 Other specified postprocedural states; Z88.6 Allergy status to analgesic agent; Z88.1 Allergy status to other antibiotic agents; Z88.5 Allergy status to narcotic agent; Z91.018 Allergy to other foods; Z88.8 Allergy status to other drugs, medicaments and biological substances; Z79.899 Other long term (current) drug therapy
CPT/HCPCS: 36415; 85025; 87502; 87503; 99283

== ENCOUNTER → 2019-09-18 | Outpatient (CLI) | payer OTHER ==
[~2019-09-18] MED LIST changes: +ALBU8.5H8 IH
== END | disposition home or self-care (01) ==
LOC: RAD 12:02
PROVIDERS: ATTEND Orthopaedic Surgery
DX: M47.816 Spondylosis without myelopathy or radiculopathy, lumbar region (principal); M48.061 Spinal stenosis, lumbar region without neurogenic claudication
CPT/HCPCS: 72148

== ENCOUNTER 2020-11-07 09:17 | Outpatient (CLI) | payer OTHER ==
[2020-11-07] MEDS ORDERED: GADOTERATE MEGLUMINE 7.5 MMOL/15 ML VIAL IV ONE (10:55)
== END 2020-11-07 23:59 | disposition home or self-care (01) ==
LOC: RAD 09:17
DX: D18.09 Hemangioma of other sites (principal); K76.9 Liver disease, unspecified
CPT/HCPCS: 74183; A9575

== ENCOUNTER 2020-11-21 08:52 | Outpatient (CLI) | payer OTHER | END 2020-11-21 23:59 | disposition home or self-care (01) | LOC: RAD 08:52 | DX: M25.452 Effusion, left hip (principal); M25.451 Effusion, right hip | CPT/HCPCS: 72195 ==

== ENCOUNTER 2021-01-23 09:35 | Outpatient (CLI) | payer OTHER ==
[~2021-01-23 09:35] MED LIST changes: +ALBU8.5H17 IH; -ALBU8.5H8 IH
== END 2021-01-23 23:59 | disposition home or self-care (01) ==
LOC: RAD 09:35
PROVIDERS: ATTEND Obstetrics & Gynecology
DX: K43.2 Incisional hernia without obstruction or gangrene (principal); R10.9 Unspecified abdominal pain
CPT/HCPCS: 76857

== ENCOUNTER 2021-01-25 09:40 | Outpatient (CLI) | payer OTHER ==
[2021-01-25] MEDS ORDERED: iohexol 300mg/ml 100ml inj. ONE (10:04)
== END 2021-01-25 23:59 | disposition home or self-care (01) ==
LOC: 64 CT 09:40
PROVIDERS: ATTEND Family Medicine
DX: K57.30 Diverticulosis of large intestine without perforation or abscess without bleeding (principal); K76.0 Fatty (change of) liver, not elsewhere classified; R16.0 Hepatomegaly, not elsewhere classified; I70.0 Atherosclerosis of aorta
CPT/HCPCS: 74177; Q9967

== ENCOUNTER 2025-01-03 05:48 | Emergency (ER) | payer OTHER ==
[~2025-01-03] VITALS: Ht 147.3 cm; Wt 80.0 kg
--- NOTE | 2025-01-03 06:46 | RADIOLOGY REPORT ---
CHEST RADIOGRAPH Indication: PT MEET SIRS CRITERIA Technique: Single frontal view of the chest was obtained Comparison: None IMPRESSION: Heart appears normal in size. The lungs appear clear without focal airspace opacity, effusion, or pn eumothorax. Cervical spine hardware.
--- NOTE | 2025-01-03 07:52 | RADIOLOGY REPORT ---
PROCEDURE: Left ankle radiographs. INDICATION: ANKLE PAIN TECHNIQUE: Frontal, lateral and oblique views of the left ankle were obtained. COMPARISON: None FINDINGS: There is no evidence of fracture or dislocation. Joint spaces are maintained. The soft tis sues are unremarkable. IMPRESSION: 1. No fracture or dislocation.
--- NOTE | 2025-01-03 08:57 | Physician Documentation ---
History of Present Illness ~ Chief Complaint: Post-operative complication Stated Complaint: ANKLE/LEG PAIN POST SURGERY Time Seen by MD: 08:35 Primary Medical Doctor: LOGAN Source: patient (10), family Mode of Arrival: POV HPI She comes in for evaluation of left leg pain. She had a significant ankle and foot surgery with tendon repair performed at [facility] in [place] on September 07, which was described to her as complicated. About 10 days later she had follow-up with suture removal and removal of her cast, and was told that she could weightbear as tolerated if she continued in her boot. Couple of weeks ago she was walking more, able to take less pain meds but then about a week ago she began to have increased pain at the site of her surgery. She reports that that pain, which begins in the lateral heel radiates into the ankle, the calf, the knee, with some spots on her thigh, hip that also hurt. She contacted her orthopedist who wanted her to come in for evaluation of the pain was worse and her pain medicines were not helping. Last night and over the last 24 hours she reports the pain has been severe enough that she can not sleep despite taking the medications. She denies any associated redness, swelling, or drainage from the wound. Patient has been taking ibuprofen 800 mg once or twice a day, and once or twice a day a half of a 10/325 [place]. Her last dose of both was at 1:00 a.m.. Patient has follow-up with her orthopedist on 01/20 but can be seen earlier. Tetanus witin 5 years: Yes Medication Reconciliation Allergies: Coded Allergies: acetaminophen (Verified Allergy, Unknown, ITCH, 12/18/17) benzocaine (Verified Allergy, Unknown, ABDOMINAL CRAMPING/ DIARRHEA, 12/18/17) erythromycin base (Verified Allergy, Unknown, ABDOMINAL PAIN/ VOMITING, 12/18/17) oxycodone (Verified Allergy, Unknown, ITCH, 12/18/17) prochlorperazine (Verified Allergy, Unknown, MUSCLE SPASMS, 12/18/17) trimethobenzamide (Verified Allergy, Unknown, ABDOMINAL CRAMPING/ DIARRHEA, 02/18/16) nathan (Verified Adverse Reaction, Severe, respiratory distress, 02/06/18) Uncoded Allergies: DAMASON P (Allergy, Mild, ITCHING, 05/13/19) Scheduled Cyclobenzaprine HCl (Cyclobenzaprine HCl), 1 TAB PO BID, (Reported) Duloxetine HCl (Duloxetine HCl), 1 CAP PO DAILY, (Reported) Fluticasone Propionate (Flonase), 1 SPRAYS BOTHNARES DAILY, (Reported) Gabapentin (Gabapentin), 3 CAP PO HS, (Reported) Hydrochlorothiazide (Hydrochlorothiazide), 1 CAP PO DAILY, (Reported) Multivitamin (Daily Value), 1 TAB PO DAILY, (Reported) Promethazine Hcl (Phenergan), 1 TAB PO Q6H Quetiapine Fumarate (Seroquel), 2 TAB PO HS, (Reported) Scheduled PRN Albuterol Sulfate (Proair Hfa), 2 PUFFS IH Q4H PRN for SOB or wheezing Promethazine Hcl (Phenergan), 12.5 MG PO BID PRN for nausea Durable Medical Equipment Walker (Ultra-Light Rollator), EACH MC DAILY, (DME) Walker, Front Wheeled (Walker, Front-wheeled), CU .SEE ORDER DAILY PRN for prn, (DME) Past Medical History Past Medical History: Migraine, Hypertension, Diabetes Past Surgical History: , hysterectomy, orthopedic surgeries, tonsillectomy Smoking Status: Never smoker Alcohol Use: Rarely Drug Use: none Lives In: Home Occupation: employed Review of Systems All Other Systems at this time: Reviewed and Negative Physical Exam Vital Signs: Temperature: 97.5, Source: Temporal, Heart Rate: 69, Respiratory Rate: 18, BP: 163/86, Pulse Oximetry: 97, Weight: 80.000 Oxygen Flow Rate: 0 Physical Exam General: Pt is awake, alert, oriented x4 in no acute distress and well appearing. Head: Normocephalic and atraumatic. Eyes: Conjunctiva normal. ENT: Mucous membranes moist. Neck: Supple. Chest: Clear to auscultation bilaterally, without rales, rhonchi, or wheezes. There is no accessory muscle use or retractions. Cardiac: Regular rate and rhythm without murmurs, gallops or rubs. Palpation of the chest wall is normal. Abd: Soft, nondistended, nontender, with normoactive bowel sounds. No guarding or rebound. Extremities: Patient has a well healed incision over the lateral left heel, with no erythema, no warmth, no swelling, no drainage. There is no swelling about the ankle or the rest of the leg. Patient has full range of motion of the ankle, has strong plantar and dorsiflexion as well at the toes, sensation is intact. Skin: Clarita, warm and dry with no significant rash appreciated. Neuro: Cranial nerves II-XII grossly intact. Progress Results/Orders Results/Orders Orders - NICOLÁS NOONAN MD Ankle, Complete(3vw Min) (01/03/25 06:55) Vl Venous (01/03/25 07:40) Morphine 2mg/Ml Inj. (Morphine Inj.) (01/03/25 09:00) Saline Lock (01/03/25 08:59) Completed Orders - NICOLÁS NOONAN MD Ankle, Complete(3vw Min) (01/03/25 06:55) Vl Venous (01/03/25 07:40) Ondansetron Inj. (Zofran 4mg/2ml Vial) (01/03/25 09:00) Ketorolac Trometh 15mg/Ml Vial (Toradol (01/03/25 09:00) Medications Received in ER Medications (Trade) Dose Ordered Sig/Arnol Route PRN Reason Start Time Stop Time Status Last Admin Dose Admin (Zofran 4mg/2ml vial) 4 mg ONCE ONCE IV 01/03/25 09:00 01/03/25 09:01 DC 01/03/25 09:25 4 MG (morphine inj.) 2 mg Q5M PRN IV moderate to severe pain 4-10 01/03/25 09:00 01/03/25 09:26 2 MG (Toradol injection) 15 mg ONCE ONCE IV 01/03/25 09:00 01/03/25 09:01 DC 01/03/25 09:25 15 MG Vital Signs 01/03/25 01/03/25 01/03/25 01/03/25 06:14 08:11 08:11 09:25 Temp 97.5 97.5 Pulse 69 69 Resp 20 18 18 18 B/P (MAP) 140/85 163/86 (111) Pulse Ox 98 97 O2 Flow Rate 0 0 01/03/25 01/03/25 01/03/25 09:26 09:49 09:49 Resp 18 15 15 Medical Decision Making Additional Comment Patient presented with pain going up her leg after surgery about a month ago. Immediate concern was for infection or thromboembolic disease. The vascular studies are completely normal, and there is no evidence for any soft tissue infection or osteomyelitis. Patient's pain was managed in the emergency department, and she is advised to continue taking ibuprofen at home as well as a full dose of her [place] which is being refill tomorrow by her orthopedist. Patient is strongly advised to follow up with her orthopedist as soon as possible for further evaluation of her pain, and understands to return to the emergency department for any worsening of her condition. Departure Time of Disposition: 10:49 Disposition: 01 HOME / SELF CARE / HOMELESS Impression: Primary Impression: Postoperative pain Condition: Stable Discharge Instructions: General Discharge Instructions Additional Instructions: Please call your orthopedist tomorrow and set up a close follow-up appointment for recheck. Continue to take 200-600 mg of ibuprofen 4 times a day, and full dose [place] as needed. Return immediately if fever, redness, swelling, shortness of breath, severe pain, or any other concerns. Referrals: NO PRIMARY CARE PROVIDER (PCP) Prescriptions Hydrocodone Bit/Acetaminophen (Hydrocodon-Acetaminophn 10-325 tablet) 10mg- 325mg Tablet 1 TAB PO Q12H PRN PRN for pain for 5 Days, #10 TAB Prov: NICOLÁS NOONAN MD 01/03/25 Education Educated: Patient, Family Educated regarding: diagnosis, treatment Signature Scribe Signature: Attestation: NICOLÁS NOONAN MD Jan 03, 2025 08:57
[2025-01-03] MEDS: ketorolac trometh 15mg/ml vial 15 MG/ML ML IV ONE (09:25)
[2025-01-03] MEDS: ondansetron/PF 4mg/2ml inj IV ONE (09:25)
--- NOTE | 2025-01-03 09:37 | VASCULAR REPORT ---
Left lower extremity venous duplex Clinical History: Pain Comparison: None Technique: Duplex Doppler evaluation of the deep venous system of the left lower extremity from the common femor al vein to the popliteal vein including color Doppler and spectral/pulsed waveform analysis was perfo rmed. Findings: The common femoral vein demonstrates appropriate compressibility and waveform variability. There is compressibility/patency of the great saphenous vein at the proximal thigh. The femoral vein demonstrates appropriate compressibility and waveform variability. The deep femoral vein demonstrates appropriate compressibility and waveform variability. The popliteal vein demonstrates appropriate compressibility and waveform variability. There is normal compressibility at the tibioperoneal trunk. Impression: No left femoropopliteal venous thrombosis. Contralateral common femoral vein is patent.
[2025-01-03] MEDS ORDERED: HYDR-3972 PO (10:52)
[2025-01-03 10:56] VITALS: BP 116/98; PULSE 69; RESP 15; TEMP 97.5; O2SAT 97
== END 2025-01-03 11:09 | disposition home or self-care (01) ==
LOC: ER 05:49
DX: G89.18 Other acute postprocedural pain (principal); M79.605 Pain in left leg; E11.9 Type 2 diabetes mellitus without complications; G43.909 Migraine, unspecified, not intractable, without status migrainosus; I10 Essential (primary) hypertension; Z90.710 Acquired absence of both cervix and uterus; Z88.1 Allergy status to other antibiotic agents; Z88.5 Allergy status to narcotic agent; Z88.8 Allergy status to other drugs, medicaments and biological substances; Z79.899 Other long term (current) drug therapy
CPT/HCPCS: 71045; 73610; 93971; 96374; 96375; 99285; J1885; J2270; J2405